=== PATIENT | male | born 2000 | race Two or more races ===

== ENCOUNTER 2022-10-09 07:23 | Outpatient (CLI) | payer OTHER | END 2022-10-09 07:24 | disposition home or self-care (01) | LOC: LAB 07:23 | PROVIDERS: ATTEND Obstetrics & Gynecology | DX: Z20.818 Contact with and (suspected) exposure to other bacterial communicable diseases (principal); Z20.828 Contact with and (suspected) exposure to other viral communicable diseases ==

== ENCOUNTER 2022-10-20 10:51 | Outpatient (CLI) | payer OTHER | END 2022-10-20 15:23 | disposition home or self-care (01) | LOC: LAB 10:51 | PROVIDERS: ATTEND Obstetrics & Gynecology | DX: Z20.828 Contact with and (suspected) exposure to other viral communicable diseases (principal) ==